=== PATIENT | female | born 1990 | race Caucasian/White ===

== ENCOUNTER → 2017-08-13 11:48 | Outpatient (CLI) | payer OTHER, SELFPAY ==
[2017-08-13 13:58] LABS: Absolute Lymphocyte Count 1.53 X10^3/ul (0.83-4.51); Basophil# 0.02 X10^3/uL; Basophil% 0.3 % (0-1); Eosinophil# 0.06 X10^3/uL; Eosinophils% 0.8 % (0-5); Hematocrit 41.6 % (37-47); Lymphocyte # 1.53 X10^3/ul (4.0); Lymphocyte % 20.7 % (19-41); Mean Corp Hgb Conc 33.7 g/gl (32-36); Mean Corpuscular Hgb 30.6 pg (27.0-32.0); Mean Corpuscular Volume 90.8 fL (81-99); Mean Platelet Vol. 10.1 fl (6.2-12.0); Monocyte# 0.77 X10^3/uL; Monocyte% 10.4 % (0-10); Neutrophil # 5.01 X10^3/uL (2.7-7.7); Neutrophil % 67.7 % (47-70); Platelet Count 345 K/mm3 (150-450); RBC Distribution Width CV 12.1 % (11.6-14.6); RBC Distribution Width SD 39.9 fl (35.1-43.9); Red Blood Count 4.58 M/mm3 (4.2-5.4); White Blood Count 7.4 K/mm3 (4.4-11.0)
[2017-08-13 14:02] LABS: POSITIVE COUNT NO; POSITIVE DIFFERENTIAL NO; POSITIVE MORPHOLOGY NO
[2017-08-13 14:18] LABS: ALB/GLOB Ratio 0.8 RATIO (0.9-2.4); AST(SGOT) 21 U/L (15-37); Alanine Aminotransfer ALT/SGPT 26 U/L (13-56); Albumin, Serum 3.4 g/dL (3.2-5.0); Alkaline Phosphatase 85 U/L (45-117); Anion Gap 8 (5-15); BUN 9 mg/dL (7-18); BUN/Creat Ratio 11.4 RATIO (10-20); Chloride 107 mmol/L (98-107); Creatinine, Serum 0.79 mg/dL (0.55-1.02); EST Glomerular Filtration Rate 92 mL/min (>60); Est Glom Filt Rate - Afr Amer 112 mL/min (>60); Ferritin 60 ng/mL (8-252); Follicle Stimulating Hormone < 0.2 mIU/mL; Globulin 4.2 g/dL (2.2-4.2); Glucose 96 mg/dL (74-106); Luteinizing Hormone < 0.2 mIU/mL; Potassium 3.7 mmol/L (3.5-5.1); Protein, Total 7.6 g/dL (6.4-8.2); Sodium Level 139 mmol/L (136-145); Thyroid Stim Hormone (TSH) 2.38 uIU/mL (0.358-3.74)
[2017-08-14 13:12] LABS: Prolactin 6.5 ng/mL
[2017-08-14 16:09] LABS: Endomysial Antibody IgA Positive (Negative); Immunoglobulin A 133 mg/dL (87-352)
[2017-08-14 16:46] LABS: DHEA Sulfate 161.5 ug/dL (84.8-378.0); t-Transglutaminase IgA 72 U/mL (0-3)
== END ==
PROVIDERS: Visit Provider Family Medicine
DX: L70.9 Acne, unspecified (principal)
CPT/HCPCS: 80053; 82024; 82533; 82627; 82728; 82784; 83001; 83002; 83516; 84146; 84443; 85025; 86255; 82626

== ENCOUNTER → 2017-09-13 14:22 | Outpatient (CLI) | payer OTHER, SELFPAY ==
[2017-09-13 15:09] LABS: Anion Gap 6 (5-15); BUN 8 mg/dL (7-18); BUN/Creat Ratio 7.3 RATIO (10-20); Calcium,Total 8.6 mg/dL (8.5-10.1); Chloride 107 mmol/L (98-107); Creatinine, Serum 1.09 mg/dL (0.55-1.02); EST Glomerular Filtration Rate 64 mL/min (>60); Est Glom Filt Rate - Afr Amer 77 mL/min (>60); Glucose 90 mg/dL (74-106); Potassium 3.5 mmol/L (3.5-5.1); Sodium Level 141 mmol/L (136-145)
== END ==
PROVIDERS: Family Provider Family Medicine; PCP Family Medicine; Visit Provider Internal Medicine Gastroenterology
DX: K90.0 Celiac disease (principal)
CPT/HCPCS: 36415; 80048; 82306

== ENCOUNTER 2017-09-20 06:55 | Day surgery (SDC) | payer OTHER, SELFPAY ==
[2017-09-20 07:18] VITALS: BP 105/79; PULSE 99; RESP 14; TEMP 37.3; O2SAT 100; BMI 20.4
[2017-09-20 07:20] LABS: Internal QC Validated? YES +Cl - CLEAR BKGD; Pregnancy, Urine Negative Negative
--- NOTE | 2017-09-20 08:16 | EGD_PTH ---
PATIENT: OZZY DENNIS LOC: EN U#:[id number] AGE/SX: 27/F ROOM: RE09/20/[address]: Dr. Noel Hastings MD : 1990 BED: DIS: 09/20/2017 SPEC #: [id number] RECD: 09/20/17 10:02 STATUS: MALLORY EUGENIA #: [id number] KING: 09/20/17 08:[address]: Noel Hastings DEPT: SURGICAL PATHOLOGY RECD BY: Carmelo Dixon ENTERED: 09/20/17 12:18 SP TYPE: EGD BIOPSY LORAINE DR: Dr. Ronak Romero MD Tissues: Duodenum, NOS Procedures: Surgery Specimen Level IV HEADER OPERATION: EGD PRE-OP DIAGNOSIS: Celiac disease in family TISSUE SUBMITTED: Random duodenal biopsies, rule out celiac MICROSCOPIC DIAGNOSIS Duodenum, random biopsy: Consistent with celiac disease. See microscopic description and comment. SJ:yadiel 09/21/17 COMMENT Correlation with clinical, endoscopic, laboratory studies and appropriate follow up are necessary. MICROSCOPIC DESCRIPTION Slides are reviewed. The specimen shows fragments of duodenal mucosa with increased number of intraepithelial lymphocytes and chronic inflammatory cells infiltrates in the lamina propria. The findings are consistent with celiac disease. GROSS DESCRIPTION Received in fixative is one container labeled with the patient's name and designated random duodenal biopsy. The specimen consists of multiple irregular fragments of light adhikari soft tissue that in aggregate measure 1 x 0.5 x 0.1 cm. The specimen is totally submitted in one cassette. / SJ:rg 09/20/17 TC:3 CPT: 33901
[2017-09-20 08:25] VITALS: BP 105/79; BP 85/43; PULSE 97; RESP 18; TEMP 36.7; O2SAT 100
--- NOTE | 2017-09-20 08:27 | PCM.OP.BLANK ---
Operative Report Date of Procedure: 09/20/17 Preop diagnosis: Patient with a positive celiac titer Postop diagnosis: EGD with biopsy of the duodenal mucosa Anesthesia: Provided a MAC Instrument: Olympus upper endoscope Informed consent was taken prior to procedure. The patient was brought to the endoscopy suite[ she] was placed left shoulder down.Anesthesia provided the MAC. The scope was passed under direct visualization down into the esophagus. The proximal midesophagus appeared normal the Z line was 36 cm from the incisors. Was easily insufflated there were no ulcerations there was erythema in the gastric mucosa the bulbar duodenum showed some cobblestoning the second and third portion of the duodenum showed cobblestoning. Multiple biopsies were taken from the third portion of the duodenum back into the bulb. The scope was withdrawn back into the stomach retroflexion was performed a view the cardia was well seen there were no abnormalities on the cardia. The stomach was decompressed the endoscope was withdrawn the patient tolerated procedure well. Impression: Positive celiac titer rule out active celiac disease with biopsies Plan: A gluten-free diet
[2017-09-20 08:30] VITALS: BP 105/79; BP 86/60; PULSE 82; RESP 16; O2SAT 100
[2017-09-20 08:35] VITALS: BP 105/79; BP 90/59; PULSE 74; RESP 16; O2SAT 100
[2017-09-20 08:40] VITALS: BP 105/79; BP 88/48; PULSE 74; RESP 16; TEMP 36.7; O2SAT 100
[2017-09-20 09:08] VITALS: BP 105/79
== END 2017-09-20 09:40 | disposition home or self-care (01) ==
LOC: EN 06:56 → AC 06:57
PROVIDERS: Anesthesiology; Family Provider Family Medicine; PCP Family Medicine; Visit Provider Internal Medicine Gastroenterology
PROC: 0DJ08ZZ Inspection of Upper Intestinal Tract, Via Natural or Artificial Opening Endoscopic (ICD-10-PCS; CPT 43235; principal; 2017-09-20 07:55)
DX: K90.0 Celiac disease (principal); K21.9 Gastro-esophageal reflux disease without esophagitis; Z79.899 Other long term (current) drug therapy
CPT/HCPCS: 43239; 81025; 88305; J7120

== ENCOUNTER → 2018-04-18 15:42 | Outpatient (CLI) | payer OTHER, SELFPAY ==
[2018-04-18 17:43] LABS: Vitamin D,25 Hydroxy 22.2 ng/mL (29.95-100.01)
== END ==
PROVIDERS: Family Provider Family Medicine; PCP Family Medicine; Visit Provider Family Medicine
DX: K90.0 Celiac disease (principal)
CPT/HCPCS: 36415; 82306

== ENCOUNTER → 2018-11-02 | Outpatient (CLI) | payer OTHER, SELFPAY ==
[2018-04-01 08:32] VITALS: BMI 20.3
[2018-11-02 09:55] LABS: Erythrocyte Sedimentation Rate 5 mm/hr (0-20)
[2018-11-02 10:00] LABS: Absolute Lymphocyte Count 1.37 X10^3/ul (0.83-4.51); Absolute Neutrophil Count 6.2 X10^3/uL (2.0-7.7); Basophil# 0.02 X10^3/uL; Basophil% 0.2 % (0-1); Eosinophil# 0.08 X10^3/uL; Hematocrit 41.8 % (37-47); Hemoglobin 14.3 g/dl (12.0-15.0); Lymphocyte # 1.37 X10^3/ul (4.0); Lymphocyte % 16.5 % (19-41); Mean Corp Hgb Conc 34.2 g/gl (32-36); Mean Corpuscular Hgb 30.7 pg (27.0-32.0); Mean Corpuscular Volume 89.7 fL (81-99); Mean Platelet Vol. 10.3 fl (6.2-12.0); Monocyte# 0.63 X10^3/uL; Monocyte% 7.6 % (0-10); Neutrophil # 6.16 X10^3/uL (2.7-7.7); Neutrophil % 74.5 % (47-70); POSITIVE COUNT NO; POSITIVE DIFFERENTIAL NO; POSITIVE MORPHOLOGY NO; Platelet Count 342 K/mm3 (150-450); RBC Distribution Width CV 11.8 % (11.6-14.6); RBC Distribution Width SD 37.7 fl (35.1-43.9); Red Blood Count 4.66 M/mm3 (4.2-5.4); White Blood Count 8.3 K/mm3 (4.4-11.0)
[2018-11-02 10:45] LABS: Thyroid Stim Hormone (TSH) 1.62 uIU/mL (0.358-3.74)
[2018-11-02 11:25] LABS: CRP 4.72 mg/L (0.0-3.0)
[2018-11-06 16:30] LABS: ANTINUCLEAR ANTIBODIES DIRECT Negative (Negative)
== END | disposition home or self-care (01) ==
LOC: LAB 08:42
PROVIDERS: Family Provider Family Medicine; PCP Family Medicine; Referring Provider Family Medicine; Visit Provider Family Medicine
DX: R10.31 Right lower quadrant pain (principal); R19.7 Diarrhea, unspecified
CPT/HCPCS: 36415; 84443; 85025; 85652; 86038; 86140

== ENCOUNTER → 2018-11-04 06:20 | Outpatient (CLI) | payer OTHER, SELFPAY | LOC: LAB 06:27 → LABSPEC 11-05 08:51 | PROVIDERS: Family Provider Family Medicine; PCP Family Medicine; Referring Provider Family Medicine; Visit Provider Family Medicine | DX: R19.7 Diarrhea, unspecified (principal) | CPT/HCPCS: 83630; 87177; 87209 ==

== ENCOUNTER → 2018-11-14 | Outpatient (CLI) | payer OTHER, SELFPAY ==
[2018-04-01 08:32] VITALS: BMI 20.3
--- NOTE | 2018-11-14 07:51 | CT_ITS ---
STUDY: CT ABDOMEN AND PELVIS WITHOUT CONTRAST REASON FOR EXAM: Female, 28 years old. Right lower quadrant discomfort and tenderness. The patient has a history of celiac disease. RADIATION DOSAGE (If Supplied By Facility): CTDIvol = ( 5.09 ) mGy, DLP = ( 236.78 ) mGycm TECHNIQUE: Transaxial images were obtained from the dome of the diaphragm to the symphysis pubis without oral contrast, and without intravenous contrast. Sagittal and coronal images were reconstructed. Individualized dose optimization techniques were used for this CT. COMPARISON: None. FINDINGS: The visualized lung bases are unremarkable. The visualized portions of the heart are within normal limits. Normal liver. Normal gallbladder and extrahepatic biliary system. Normal spleen. Normal pancreas. Normal bilateral adrenal glands. Normal right kidney. Normal left kidney. Normal visualized stomach. Normal small intestine. Normal colon. The appendix is visualized and appears normal. Normal abdominal aorta. Normal inferior vena cava. Normal retroperitoneum. Normal urinary bladder. Normal abdominal wall. Normal osseous structures. CT/Abdomen/Pelvis without Cont IMPRESSION: Normal unenhanced CT of the abdomen and pelvis. Electronically Signed: Juan Blanc, at 10:37 EDT , Service support ,
== END | disposition home or self-care (01) ==
LOC: CT 07:50
PROVIDERS: Family Provider Family Medicine; PCP Family Medicine; Referring Provider Family Medicine; Visit Provider Family Medicine
DX: R10.31 Right lower quadrant pain (principal)
CPT/HCPCS: 74176

== ENCOUNTER → 2021-02-05 08:20 | Outpatient (CLI) | payer OTHER, SELFPAY ==
[2021-02-05 10:45] LABS: ALB/GLOB Ratio 0.9 RATIO (0.9-2.4); AST(SGOT) 21 U/L (15-37); Alanine Aminotransfer ALT/SGPT 34 U/L (13-56); Albumin, Serum 3.7 g/dL (3.2-5.0); Alkaline Phosphatase 114 U/L (45-117); Anion Gap 7 (5-15); BUN 11 mg/dL (7-18); BUN/Creat Ratio 13.1 RATIO (10-20); Chloride 106 mmol/L (98-107); Creatinine, Serum 0.84 mg/dL (0.55-1.02); EST Glomerular Filtration Rate 84 mL/min (>60); Est Glom Filt Rate - Afr Amer 102 mL/min (>60); Estradiol 37.3 pg/mL; Globulin 4.1 g/dL (2.2-4.2); Glucose 87 mg/dL (74-106); Potassium 3.5 mmol/L (3.5-5.1); Protein, Total 7.8 g/dL (6.4-8.2); Sodium Level 140 mmol/L (136-145); Thyroid Stim Hormone (TSH) 1.82 uIU/mL (0.358-3.74)
== END ==
PROVIDERS: PCP Family Medicine; Visit Provider Family Medicine
DX: Z30.9 Encounter for contraceptive management, unspecified (principal)
CPT/HCPCS: 80053; 82670; 83036; 84403; 84443

== ENCOUNTER → 2021-10-10 | Outpatient (CLI) | payer BC, SELFPAY ==
[2021-10-13 14:34] LABS: HPV APTIMA, High Risk Negative (Negative)
== END | disposition home or self-care (01) ==
PROVIDERS: PCP Family Medicine; Visit Provider Student in an Organized Health Care Education/Training Program
DX: Z12.4 Encounter for screening for malignant neoplasm of cervix (principal)
CPT/HCPCS: 87624; 88175; G0145

== ENCOUNTER → 2021-12-08 | Outpatient (CLI) | payer BC, SELFPAY ==
[2021-12-08 10:28] LABS: Internal QC Validated? YES +Cl - CLEAR BKGD; Pregnancy, Urine Negative Negative
== END | disposition home or self-care (01) ==
LOC: MTLAB 07:15
PROVIDERS: PCP Family Medicine; Referring Provider Dermatology; Visit Provider Dermatology
DX: Z79.899 Other long term (current) drug therapy (principal)
CPT/HCPCS: 81025

== ENCOUNTER → 2022-03-13 | Outpatient (CLI) | payer BC, SELFPAY ==
[2022-03-13 12:27] LABS: Internal QC Validated? YES +Cl - CLEAR BKGD; Pregnancy, Urine Negative Negative
== END | disposition home or self-care (01) ==
PROVIDERS: PCP Family Medicine; Referring Provider Dermatology; Visit Provider Dermatology
DX: L70.0 Acne vulgaris (principal); L90.5 Scar conditions and fibrosis of skin; L70.5 Acne excoriee; K13.0 Diseases of lips; L23.3 Allergic contact dermatitis due to drugs in contact with skin; Z79.899 Other long term (current) drug therapy
CPT/HCPCS: 81025

== ENCOUNTER → 2022-04-10 | Outpatient (CLI) | payer BC, SELFPAY ==
[2022-04-10 16:09] LABS: Internal QC Validated? YES +Cl - CLEAR BKGD; Pregnancy, Urine Negative Negative
== END | disposition home or self-care (01) ==
LOC: BIMLAB 13:05
PROVIDERS: PCP Family Medicine; Referring Provider Dermatology; Visit Provider Dermatology
DX: Z79.899 Other long term (current) drug therapy (principal)
CPT/HCPCS: 81025

== ENCOUNTER → 2022-05-08 | Outpatient (CLI) | payer BC, SELFPAY ==
[2022-05-08 15:13] LABS: Internal QC Validated? YES +Cl - CLEAR BKGD; Pregnancy, Urine Negative Negative
== END | disposition home or self-care (01) ==
LOC: BIMLAB 14:08
PROVIDERS: PCP Family Medicine; Referring Provider Dermatology; Visit Provider Dermatology
DX: Z79.899 Other long term (current) drug therapy (principal)
CPT/HCPCS: 81025

== ENCOUNTER → 2022-06-08 | Outpatient (CLI) | payer BC, SELFPAY ==
[2022-06-08 13:02] LABS: Internal QC Validated? YES +Cl - CLEAR BKGD; Pregnancy, Urine Negative Negative
== END | disposition home or self-care (01) ==
LOC: BIMLAB 10:32
PROVIDERS: PCP Family Medicine; Referring Provider Dermatology; Visit Provider Dermatology
DX: Z79.899 Other long term (current) drug therapy (principal); L70.0 Acne vulgaris; L90.5 Scar conditions and fibrosis of skin; L70.5 Acne excoriee; L85.3 Xerosis cutis; K13.0 Diseases of lips; L23.3 Allergic contact dermatitis due to drugs in contact with skin
CPT/HCPCS: 81025

== ENCOUNTER → 2022-07-17 | Outpatient (CLI) | payer BC, SELFPAY ==
[2022-07-17 12:11] LABS: Internal QC Validated? YES +Cl - CLEAR BKGD; Pregnancy, Urine Negative Negative
== END | disposition home or self-care (01) ==
LOC: MTLAB 10:43
PROVIDERS: PCP Family Medicine; Referring Provider Dermatology; Visit Provider Dermatology
DX: L70.0 Acne vulgaris (principal); L90.5 Scar conditions and fibrosis of skin; L70.5 Acne excoriee; L85.3 Xerosis cutis; K13.0 Diseases of lips; L23.3 Allergic contact dermatitis due to drugs in contact with skin; Z79.899 Other long term (current) drug therapy
CPT/HCPCS: 81025

== ENCOUNTER → 2022-08-14 | Outpatient (CLI) | payer BC, SELFPAY ==
[2022-08-14 12:40] LABS: Internal QC Validated? YES +Cl - CLEAR BKGD; Pregnancy, Urine Negative Negative
== END | disposition home or self-care (01) ==
PROVIDERS: PCP Family Medicine; Visit Provider Dermatology
DX: L70.0 Acne vulgaris (principal); L90.5 Scar conditions and fibrosis of skin; L70.5 Acne excoriee; L85.3 Xerosis cutis; K13.0 Diseases of lips; L23.3 Allergic contact dermatitis due to drugs in contact with skin; Z79.899 Other long term (current) drug therapy
CPT/HCPCS: 81025

== ENCOUNTER → 2022-09-18 | Outpatient (CLI) | payer BC, SELFPAY ==
[2022-09-18 12:11] LABS: Internal QC Validated? YES +Cl - CLEAR BKGD
[2022-09-18 12:12] LABS: Pregnancy, Urine Negative Negative
== END | disposition home or self-care (01) ==
LOC: LABSPEC 09:52
PROVIDERS: PCP Family Medicine; Referring Provider Dermatology; Visit Provider Dermatology
DX: L70.0 Acne vulgaris (principal); L90.5 Scar conditions and fibrosis of skin; L70.5 Acne excoriee; L85.3 Xerosis cutis; K13.0 Diseases of lips; L23.3 Allergic contact dermatitis due to drugs in contact with skin; Z79.899 Other long term (current) drug therapy
CPT/HCPCS: 81025

== ENCOUNTER → 2022-10-21 | Outpatient (CLI) | payer BC, SELFPAY ==
[2022-10-21 10:37] LABS: Internal QC Validated? YES +Cl - CLEAR BKGD; Pregnancy, Urine Negative Negative
== END | disposition home or self-care (01) ==
LOC: LAB 08:49
PROVIDERS: PCP Family Medicine; Referring Provider Dermatology; Visit Provider Dermatology
DX: L70.0 Acne vulgaris (principal); L90.5 Scar conditions and fibrosis of skin; L70.5 Acne excoriee; L85.3 Xerosis cutis; Z79.899 Other long term (current) drug therapy; K13.0 Diseases of lips; L23.3 Allergic contact dermatitis due to drugs in contact with skin
CPT/HCPCS: 81025

== ENCOUNTER → 2022-11-21 | Outpatient (CLI) | payer BC, SELFPAY ==
[2022-11-21 09:52] LABS: Internal QC Validated? YES +Cl - CLEAR BKGD; Pregnancy, Urine Negative Negative
== END | disposition home or self-care (01) ==
LOC: MTLAB 08:47
PROVIDERS: PCP Family Medicine; Referring Provider Dermatology; Visit Provider Dermatology
DX: Z79.899 Other long term (current) drug therapy (principal)
CPT/HCPCS: 81025

== ENCOUNTER → 2023-07-06 | Outpatient (CLI) | payer BC, SELFPAY ==
--- OUTSIDE RECORDS SUMMARY | 2023-07-06 15:53 | XMS RPT_ITS | CCD ---
Author Name Unknown Address [address] [place] [address] Organization [facility] Care Team Providers Care Fire Engine Operator Name Role Phone JOHN PAUL JOSHI Referring Unavailable JOHN PAUL JOSHI Attending Unavailable Results Test Name Value Interpretation Reference Range Facil ity Encounters Encounter Date Encounter Type Care Provider Facility Start: 03-18-2021 ambulatory JOHN PAUL JOSHI Facil ity:[facility] Start: 09-26-2018 End: 09-26-2018 Patient encounter procedure [facility] Summary Purpose Family History No Family History Records FoundNo Family History Records Found Advance Directives No Advanced Directives Records FoundNo Advanced Directives Records Found Additional Source Comments INFORMATION SOURCE (unrecogn ized section and content) DATE CREATED AUTHOR AUTHOR'S NIRALI ATION 03/20/2021 [facility] FOR RECORDS PERTAINING TO PATIENTS WHO ARE OR HAVE BEEN ENROLLED IN A CHEMICAL DEPENDENCY/SUBSTANCEABUSE PROGRAM, SOME INFORMATION MAY BE OMITTED. This clinical summary was aggregated from multiple sources. Caution should be exercised in using it in the provision of clinical care. This summary normalizes information from multiple sources, and as a consequence, information in this document may materially change the coding, format and clinical context of patient data. In addition, data may be omitted in some cases. CLINICAL DECISIONS SHOULD BE BASED ON THE PRIMARY CLINICAL RECORDS. [employer] provides no warranty or guarantee of the accuracy or completeness of information in this document.
[2023-07-06 17:45] LABS: Absolute Lymphocyte Count 1.69 X10^3/uL (0.83-4.51); Absolute Neutrophil Count 6.2 X10^3/uL (2.0-7.7); Basophil# 0.04 X10^3/uL; Basophil% 0.5 % (0-1); Eosinophil# 0.05 X10^3/uL; Eosinophils% 0.6 % (0-5); Hematocrit 42.8 % (37-47); Hemoglobin 14.3 g/dL (12.0-15.0); Lymphocyte # 1.69 X10^3/ul (0.83-4.51); Lymphocyte % 19.1 % (19-41); Mean Corp Hgb Conc 33.4 g/dL (32-36); Mean Corpuscular Volume 92.6 fL (81-99); Monocyte# 0.86 X10^3/uL; Monocyte% 9.7 % (0-10); NRBC Flagged by Analyzer 0 % (0-5); Neutrophil % 69.8 % (47-70); Platelet Count 314 K/mm3 (150-450); RBC Distribution Width CV 11.8 % (11.6-14.6); RBC Distribution Width SD 39.5 fl (35.1-43.9); Red Blood Count 4.62 M/mm3 (4.2-5.4); White Blood Count 8.9 K/mm3 (4.4-11.0)
[2023-07-06 18:37] LABS: AST(SGOT) 20 U/L (15-37); Alanine Aminotransfer ALT/SGPT 29 U/L (13-56); Albumin, Serum 3.9 g/dL (3.2-5.0); Alkaline Phosphatase 93 U/L (45-117); Anion Gap 7 (5-15); BUN 11 mg/dL (7-18); BUN/Creat Ratio 13.2 RATIO (10-20); CRP < 2.90 mg/L (0.0-3.0); Calcium,Total 9.5 mg/dL (8.5-10.1); Chloride 108 mmol/L (98-107); Creatinine, Serum 0.84 mg/dL (0.55-1.02); EST Glomerular Filtration Rate 83 mL/min (>60); Est Glom Filt Rate - Afr Amer 101 mL/min (>60); Ferritin 157 ng/mL (8-252); Globulin 4.1 g/dL (2.2-4.2); Glucose 92 mg/dL (74-106); Potassium 3.8 mmol/L (3.5-5.1); Sodium Level 138 mmol/L (136-145); Thyroid Stim Hormone (TSH) 1.78 uIU/mL (0.358-3.74)
[2023-07-09 14:08] LABS: ANTINUCLEAR ANTIBODIES DIRECT Negative (Negative)
== END | disposition home or self-care (01) ==
LOC: MFPLAB 15:29
PROVIDERS: PCP Family Medicine; Visit Provider Family Medicine
DX: G43.829 Menstrual migraine, not intractable, without status migrainosus (principal); R10.84 Generalized abdominal pain
CPT/HCPCS: 36415; 80053; 82728; 84443; 85025; 86038; 86140

== ENCOUNTER → 2023-08-13 | Outpatient (CLI) | payer BC, SELFPAY ==
--- OUTSIDE RECORDS SUMMARY | 2023-08-13 09:49 | XMS RPT_ITS | CCD ---
Author Name Unknown Address [address] [place] [address] Organization [facility] Care Team Providers Care Diffusion Operator Name Role Phone JOHN PAUL JOSHI Referring Unavailable JOHN PAUL JOSHI Attending Unavailable Results Test Name Value Interpretation Reference Range Facil ity Encounters Encounter Date Encounter Type Care Provider Facility Start: 03-18-2021 ambulatory JOHN PAUL JOSHI Facil ity:[facility] Start: 09-26-2018 End: 09-26-2018 Patient encounter procedure [facility] Summary Purpose Family History No Family History Records FoundNo Family History Records Found Advance Directives No Advanced Directives Records FoundNo Advanced Directives Records Found Additional Source Comments INFORMATION SOURCE (unrecogn ized section and content) DATE CREATED AUTHOR AUTHOR'S NIRALI ATION 03/20/2021 [facility] FOR RECORDS PERTAINING TO PATIENTS WHO ARE [...] BE BASED ON THE PRIMARY CLINICAL RECORDS. [employer] provides no warranty or guarantee of the accuracy or completeness of information in this document.
[2023-08-13 11:07] LABS: AST(SGOT) 21 U/L (15-37); Alanine Aminotransfer ALT/SGPT 31 U/L (13-56); Alkaline Phosphatase 95 U/L (45-117); Bilirubin, Direct 0.39 mg/dL (0.00-0.30); Cholesterol 153 mg/dL (200); High Density Lipoprotein 70 mg/dL; Triglycerides 59 mg/dL; Very Low Density Lipoprotein 12 mg/dL (5-40)
== END | disposition home or self-care (01) ==
LOC: MFPLAB 09:14
PROVIDERS: PCP Family Medicine; Visit Provider Family Medicine
DX: Z13.220 Encounter for screening for lipoid disorders (principal)
CPT/HCPCS: 36415; 80061; 80076

== ENCOUNTER → 2024-07-12 | Outpatient (CLI) | payer BC, SELFPAY ==
[2024-07-12 10:00] LABS: Cholesterol 141 mg/dL (200); Glucose 93 mg/dL (74-106); High Density Lipoprotein 69 mg/dL; Triglycerides 79 mg/dL; Very Low Density Lipoprotein 16 mg/dL (5-40)
== END | disposition home or self-care (01) ==
LOC: LAB 08:31
PROVIDERS: PCP Family Medicine; Referring Provider Family Medicine; Visit Provider Family Medicine
DX: Z00.8 Encounter for other general examination (principal); Z13.220 Encounter for screening for lipoid disorders
CPT/HCPCS: 80061; 82947